=== PATIENT | female | born 1955 | race Caucasian/White ===

== ENCOUNTER 2017-08-10 21:25 | Emergency (ER) | payer SELFPAY, OTHER | END 2017-08-10 22:06 | disposition left against medical advice (07) | LOC: ERS 21:25 | DX: Z53.21 Procedure and treatment not carried out due to patient leaving prior to being seen by health care provider (principal) ==

== ENCOUNTER 2018-01-11 00:07 | Emergency (ER) | payer OTHER, SELFPAY ==
[2018-01-11 01:09] LABS: #Basophils 0.1 thou/uL (0.0-0.2); #Eosinphils 0.1 thou/uL (0.0-0.7); #Lymphocytes 2.8 thou/uL (1.20-3.40); #Monocytes 0.5 thou/uL (0.11-0.59); #Neutrophils 3.2 thou/uL (1.40-6.50); %Basophils 1.1 % (0.0-1.0); %Eosinophils 1.9 % (0.0-10.0); %Lymphocytes 41.7 % (21.0-51.0); %Monocytes 7.8 % (0.0-10.0); %Neutrophils 47.5 % (42.0-75.0); Hemoglobin 12.5 g/dL (12.0-16.0); Mean Corpuscular HGB CONC 34.1 g/dL (32.0-36.0); Mean Corpuscular Hemoglobin 29.8 pg (27.0-31.0); Mean Corpuscular Volume 87.2 fL (78.0-98.0); Mean Platelet Volume 6.8 fL (7.4-10.4); Platelet Count 254 thou/uL (130-400); RBC Distribution Width 12.5 % (11.5-14.5); Red Blood Cell (RBC) Count 4.19 mill/uL (4.20-5.40); White Blood Cell (WBC) Count 6.7 thou/uL (4.8-10.8)
[2018-01-11 01:25] LABS: ALT (SGPT) 15 U/L (8-55); AST (SGOT) 26 U/L (5-34); Albumin 4.4 g/dL (3.4-4.8); Alkaline Phosphatase 63 U/L (40-150); Anion Gap 18 mmol/L (10-20); BUN (Urea Nitrogen) 14 mg/dL (9.8-20.1); Bilirubin, Total 0.3 mg/dL (0.2-1.2); CK (CPK) 205 U/L (29-168); Calc. Creatinine Clearance 0 mL/min (70-130); Calcium 9.9 mg/dL (7.8-10.44); Carbon Dioxide 19 mmol/L (23-31); Chloride 108 mmol/L (98-107); Estimated GFR-MDRD 58; Globulin 3.6 g/dL (2.4-3.5); Glucose 90 mg/dL (80-115); Potassium 4.5 mmol/L (3.5-5.1); Sodium 140 mmol/L (136-145)
[2018-01-11 01:26] LABS: CKMB 2.3 ng/mL (0-6.6); Troponin I Less than 0.010 ng/mL (< 0.028)
[2018-01-11] MEDS ORDERED: Ketorolac Tromethamine 30 MG/ML VIAL ONE (03:11)
[2018-01-11] MEDS ORDERED: Clindamycin/D5W 900 mg/50 ml Premix Bag ONE (03:22)
[2018-01-11] MEDS ORDERED: Nitroglycerin 2% Ointment 1 INCH/1 GM Packet ONE (03:22)
[2018-01-11 03:54] LABS: Troponin I 0.013 ng/mL (< 0.028)
--- NOTE | 2018-01-11 08:46 | RAD ---
[facility] CHEST: Date: 01/11/18 HISTORY: Chest pain. FINDINGS: Lung ramos are clear. Heart and mediastinum appear normal. Vasculature is normal. IMPRESSION: No acute findings. POS: [facility]
== END 2018-01-11 05:27 | disposition home or self-care (01) ==
LOC: ERS 00:07
DX: R07.89 Other chest pain (principal); M19.011 Primary osteoarthritis, right shoulder; K02.9 Dental caries, unspecified; E78.5 Hyperlipidemia, unspecified; G43.909 Migraine, unspecified, not intractable, without status migrainosus; F41.9 Anxiety disorder, unspecified; F32.9 Major depressive disorder, single episode, unspecified; Z79.899 Other long term (current) drug therapy
CPT/HCPCS: 36415; 71045; 80053; 82553; 84484; 85025; 93005; 96365; 96375; J1885; J3490

== ENCOUNTER 2018-06-20 01:25 | Emergency (ER) | payer SELFPAY ==
[2018-06-20 02:35] LABS: #Eosinphils 0.1 thou/uL (0.0-0.7); #Monocytes 0.3 thou/uL (0.11-0.59); #Neutrophils 2.3 thou/uL (1.40-6.50); %Basophils 0.7 % (0.0-1.0); %Eosinophils 1.7 % (0.0-10.0); %Lymphocytes 42.1 % (21.0-51.0); %Monocytes 6.2 % (0.0-10.0); %Neutrophils 49.2 % (42.0-75.0); Hemoglobin 12.2 g/dL (12.0-16.0); Mean Corpuscular HGB CONC 33.5 g/dL (32.0-36.0); Mean Corpuscular Hemoglobin 29.8 pg (27.0-31.0); Mean Corpuscular Volume 88.9 fL (78.0-98.0); Mean Platelet Volume 6.5 fL (7.4-10.4); Platelet Count 259 thou/uL (130-400); RBC Distribution Width 12.7 % (11.5-14.5); Red Blood Cell (RBC) Count 4.09 mill/uL (4.20-5.40); White Blood Cell (WBC) Count 4.7 thou/uL (4.8-10.8)
[2018-06-20 02:43] LABS: ALT (SGPT) 14 U/L (8-55); AST (SGOT) 19 U/L (5-34); Albumin 3.8 g/dL (3.4-4.8); Alkaline Phosphatase 52 U/L (40-150); Anion Gap 13 mmol/L (10-20); BUN (Urea Nitrogen) 12 mg/dL (9.8-20.1); Bilirubin, Total 0.3 mg/dL (0.2-1.2); Calc. Creatinine Clearance 0 mL/min (70-130); Calcium 9.3 mg/dL (7.8-10.44); Carbon Dioxide 22 mmol/L (23-31); Chloride 109 mmol/L (98-107); Estimated GFR-MDRD 67; Globulin 2.9 g/dL (2.4-3.5); Glucose 105 mg/dL (80-115); Lipase 63 U/L (8-78); Potassium 3.7 mmol/L (3.5-5.1); Protein, Total 6.7 g/dL (6.0-8.3); Sodium 140 mmol/L (136-145)
[2018-06-20] MEDS ORDERED: Morphine 2 MG/ML SYRINGE ONE (02:50)
[2018-06-20] MEDS ORDERED: Ketorolac Tromethamine 30 MG/ML VIAL ONE (02:51)
[2018-06-20] MEDS ORDERED: Ondansetron ODT 4 MG TAB ONE (02:51)
[2018-06-20] MEDS ORDERED: Dicyclomine 20 MG TAB ONE (02:51)
--- NOTE | 2018-06-20 08:30 | ULT ---
PRELIMINARY REPORT/[facility]/EMERGENTY AFTER-HOURS PROCEDURE US Abdomen Limited, Right Upper Quadrant EXAM DATE/TIME: 06/20/2018 2:27 AM CLINICAL HISTORY: 62 years old, female; Pain and signs and symptoms; Constipation and nausea; Abdominal pain; Other: Ru q - radiating to upper back TECHNIQUE: Real-time ultrasound of the abdomen with image documentation. Examination was focused on the right up per quadrant. COMPARISON: No relevant prior studies available. FINDINGS: Liver: Slight increased echogenicity of the liver may indicate fatty infiltration. Otherwise unremark able liver, no focal abnormality. Gallbladder: No cholelithiasis. No gallbladder wall thickening or pericholecystic fluid. The gallblad frances does not appear abnormally distended at this time. Common bile duct: No biliary dilation, common duct measures 4 mm. Pancreas: Visible pancreas unremarkable. Right kidney: Images of the right kidney show no hydronephrosis. IMPRESSION: 1. No cholelithiasis or biliary tree dilation. 2. Other findings discussed above. Thank you for allowing us to participate in the care of your patient. Dictated and Authenticated by: Inocencio Rangel MD 06/20/2018 3:17 AM Central Time ([place] & [place]) FINAL REPORT SONOGRAM RIGHT UPPER QUADRANT: DATE: 06/20/2018. TIME: Performed on an emergency basis at 0228 hours. HISTORY: Right upper quadrant pain. FINDINGS: Agree with the preliminary report by Dr. Rangel from [facility]. No sonographic evidence of ga llstones or biliary obstruction. POS: [facility]
--- NOTE | 2018-06-20 08:32 | CT ---
PRELIMINARY REPORT/[facility]/EMERGENTY AFTER-HOURS PROCEDURE CT Abdomen and Pelvis Without Contrast EXAM DATE/TIME: 06/20/2018 2:51 AM CLINICAL HISTORY: 62 years old, female; Pain; Abdominal pain; Generalized; Patient HX: Patient reports abd and back tye n for almost a week TECHNIQUE: Axial computed tomography images of the abdomen and pelvis without contrast. Coronal reformatted images were created and reviewed. COMPARISON: US Gallbladder RUQ 06/20/2018 2:27 AM FINDINGS: Lower thorax: The lung bases are clear. ABDOMEN: Liver: Unremarkable. Gallbladder and bile ducts: No definite gallbladder abnormality by CT. No biliary tree dilation. Pancreas: Unremarkable. Spleen: Unremarkable. Adrenals: Unremarkable. Kidneys and ureters: No hydronephrosis of either kidney. No visible renal or ureteral calculus. Stomach and bowel: There are no CT findings to strongly suggest diverticulitis. Appendix: The appendix is not identified with certainty, however no pericecal inflammatory changes are seen. PELVIS: Bladder: Unremarkable as visualized. Reproductive: Unremarkable as visualized. ABDOMEN and PELVIS: Intraperitoneal space: No free air, ascites, or bowel distention. No abnormal mass or fluid collection in the pelvis. Bones/joints: No significant acute finding. Soft tissues: Very small umbilical hernia, containing only fat. Vasculature: No evidence for abdominal aortic aneurysm. Lymph nodes: No retroperitoneal adenopathy. IMPRESSION: 1. No free air or bowel distention. 2. No hydronephrosis of either kidney. No visible renal or ureteral calculus. 3. No CT evidence to suggest appendicitis, however a normal appendix is not definitely visible. 4. No diverticulitis. 5. Other findings discussed above. Thank you for allowing us to participate in the care of your patient. Dictated and Authenticated by: Inocencio Rangel MD 06/20/2018 3:45 AM Central Time ([place] & [place]) FINAL REPORT CT ABDOMEN AND PELVIS NONCONTRAST PERFORMED ON AN EMERGENCY BASIS: Date: 06/20/18 Time: 0253 hours HISTORY: Flank pain. COMPARISON: 08/03/16. FINDINGS/IMPRESSION: Findings agree with the preliminary report by [facility]. No CT evidence of urinary tract calcification or obstruction. Lack of contrast limits evaluation for other abnormalities. POS: [facility]
== END 2018-06-20 04:18 | disposition home or self-care (01) ==
LOC: ERS 01:25
DX: R10.13 Epigastric pain (principal); R10.11 Right upper quadrant pain; R10.30 Lower abdominal pain, unspecified; E78.5 Hyperlipidemia, unspecified; G43.909 Migraine, unspecified, not intractable, without status migrainosus; F41.9 Anxiety disorder, unspecified; F32.9 Major depressive disorder, single episode, unspecified
CPT/HCPCS: 36415; 74176; 76705; 80053; 83690; 84484; 85025; 96374; 96375; J1885; J2270; Q0162

== ENCOUNTER 2018-07-03 22:23 | Emergency (ER) | payer SELFPAY ==
[2018-07-03 23:10] LABS: #Eosinphils 0.1 thou/uL (0.0-0.7); #Lymphocytes 2.9 thou/uL (1.20-3.40); #Monocytes 0.4 thou/uL (0.11-0.59); #Neutrophils 6.7 thou/uL (1.40-6.50); %Basophils 0.3 % (0.0-1.0); %Eosinophils 0.8 % (0.0-10.0); %Monocytes 3.8 % (0.0-10.0); %Neutrophils 66.1 % (42.0-75.0); Mean Corpuscular HGB CONC 33.4 g/dL (32.0-36.0); Mean Corpuscular Hemoglobin 29.6 pg (27.0-31.0); Mean Corpuscular Volume 88.6 fL (78.0-98.0); Mean Platelet Volume 6.6 fL (7.4-10.4); Platelet Count 309 thou/uL (130-400); RBC Distribution Width 12.5 % (11.5-14.5); White Blood Cell (WBC) Count 10.1 thou/uL (4.8-10.8)
[2018-07-03 23:21] LABS: ALT (SGPT) 15 U/L (8-55); AST (SGOT) 19 U/L (5-34); Albumin 4.2 g/dL (3.4-4.8); Alkaline Phosphatase 62 U/L (40-150); Anion Gap 15 mmol/L (10-20); BUN (Urea Nitrogen) 7 mg/dL (9.8-20.1); Bilirubin, Total 0.2 mg/dL (0.2-1.2); CK (CPK) 138 U/L (29-168); Calc. Creatinine Clearance 0 mL/min (70-130); Calcium 9.6 mg/dL (7.8-10.44); Carbon Dioxide 18 mmol/L (23-31); Chloride 112 mmol/L (98-107); Estimated GFR-MDRD 72; Globulin 3.2 g/dL (2.4-3.5); Glucose 92 mg/dL (80-115); Potassium 3.4 mmol/L (3.5-5.1); Protein, Total 7.4 g/dL (6.0-8.3); Sodium 142 mmol/L (136-145)
[2018-07-03 23:27] LABS: CKMB 1.9 ng/mL (0-6.6)
[2018-07-04 00:29] LABS: Bilirubin Negative (Negative); Blood, Urine Trace (Negative); Clarity CLEAR (Clear); Glucose, Urine (Dipstick) Negative (Negative); Leukocyte Negative (Negative); Nitrite Negative (Negative); Protein, Urine (Dipstick) Negative (Neg-Trace); Specific Gravity, Urine 1.011 (1.002-1.036); Urobilinogen 0.2 mg/dL (0.2-1.0); pH, Urine 5.5 (5.0-9.0)
[2018-07-04 00:34] LABS: Bacteria/HPF None Seen HPF (None Seen); Hyaline Casts/LPF 0-3 HYALINE CAST LPF (0-3 Hyaline); Pathc Cast-AUWi Flag 0.14 (0-2.49); RBC/HPF 0-3 HPF (0-3); Squamous Epithelial 0-3 HPF (0-3); WBC/HPF 0-3 HPF (0-3)
[2018-07-04] MEDS ORDERED: Ondansetron PF 4 MG/2 ML Vial ONE (00:42)
[2018-07-04] MEDS ORDERED: Metoclopramide HCl 10 MG/2 ML VIAL ONE (00:42)
[2018-07-04] MEDS ORDERED: Lidocaine Viscous Sol 2% 15 ml UD Cup ONE (01:00)
[2018-07-04] MEDS ORDERED: Mag-Al 1200 mg/1200 mg/30 ML UDCUP ONE (01:00)
== END 2018-07-04 01:55 | disposition home or self-care (01) ==
LOC: ERS 22:23
DX: R10.10 Upper abdominal pain, unspecified (principal); R10.816 Epigastric abdominal tenderness; R11.0 Nausea; E78.5 Hyperlipidemia, unspecified; F41.9 Anxiety disorder, unspecified; F32.9 Major depressive disorder, single episode, unspecified; Z79.899 Other long term (current) drug therapy
CPT/HCPCS: 36415; 80053; 81003; 81015; 82550; 82553; 85025; 93005; 96361; 96374; 96375; J2405; J2765

== ENCOUNTER 2020-11-19 23:07 | Emergency (ER) | payer SELFPAY ==
[2020-11-19] MEDS ORDERED: HYDROcodone/Acetaminophen 5/325 mg Tablet ONE ×2 (23:56→23:59)
== END 2020-11-20 00:10 | disposition home or self-care (01) ==
LOC: ERS 23:07
DX: M54.12 Radiculopathy, cervical region (principal); E78.5 Hyperlipidemia, unspecified; G43.909 Migraine, unspecified, not intractable, without status migrainosus
CPT/HCPCS: 99283